=== PATIENT | male | born 1980 | race Caucasian/White ===

== ENCOUNTER 2025-01-06 14:35 | Emergency (ER) | payer MEDICAID ==
[~2025-01-06] VITALS: Ht 167.6 cm; Wt 88.5 kg
[2025-01-06] MEDS ORDERED: LIDO30AD10 TP (15:35)
[2025-01-06] MEDS ORDERED: KETOROLAC TROMETHAMINE 15 MG/ML VIAL ONE (15:40)
[2025-01-06] MEDS ORDERED: ACETAMINOPHEN ES 500 MG TABLET ONE (15:40)
[2025-01-06] MEDS ORDERED: LIDOCAINE 5% (PATCH) 1 EA PATCH TP ONE (15:40)
[2025-01-06] MEDS: KETOROLAC TROMETHAMINE 15 MG/ML VIAL IM ONE (15:45)
[2025-01-06] MEDS: LIDOCAINE 5% (PATCH) 1 EA PATCH TP SCH (15:45)
[2025-01-06] MEDS: ACETAMINOPHEN ES 500 MG TABLET PO ONE (15:45)
[2025-01-06 16:00] VITALS: BP 125/78; TEMP 98.7; O2SAT 99
== END 2025-01-06 16:00 | disposition home or self-care (01) ==
LOC: ER 14:44
DX: S39.012A Strain of muscle, fascia and tendon of lower back, initial encounter (principal); X50.0XXA Overexertion from strenuous movement or load, initial encounter; Y93.89 Activity, other specified; Y92.89 Other specified places as the place of occurrence of the external cause; Y99.8 Other external cause status
CPT/HCPCS: 99283; 96372; J1885